=== PATIENT | male | born 1980 | race Caucasian/White ===

== ENCOUNTER 2019-07-03 08:14 | Emergency (ER) | payer BC, OTHER ==
[~2019-07-03] VITALS: Ht 167.6 cm; Wt 54.5 kg
[~2019-07-03 08:14] MED LIST: ADVA1AER2; PRED20TA; PRIL40CA; VENTAER; XOPE1.252
--- NOTE | 2019-07-03 08:48 | REP ---
Portable chest x-ray: Single view. History: Chest pain. Comparison study: May 11, 2009. Findings: The lungs are hyperinflated but free of infiltrate. Heart size is normal. Pulmonary vasculature is not increased. The pleural angles are sharp. No significant bony abnormality is seen. Impression: Hyperinflation. No acute disease. Electronically Signed by Bryan Smith MD 07/03/2019 08:39 A
[2019-07-03] MEDS ORDERED: ONDANSETRON 4MG/2ML VIAL (J2405) IV ONE (09:15)
[2019-07-03] MEDS ORDERED: NS 1,000 ML IV ONE (09:15)
[2019-07-03 09:21] LABS: BASO % 0.4 % (0.0-1.0); EOS % 0.1 % (0.0-3.0); HEMATOCRIT 41.2 % (42.0-52.0); HEMOGLOBIN 14.4 g/dl (13.5-17.5); LYMPH # 0.3 10^3/uL (1.5-5.0); LYMPH % 2.7 % (24.0-44.0); MEAN CORPUSCULAR VOLUME 85.8 fl (80.0-96.0); MONO # 0.5 10^3/uL (0.0-0.8); MONO % 5.7 % (0.0-5.0); NEUTROPHILS # 8.4 10^3/uL (1.5-8.5); NEUTROPHILS % 90.6 % (36.0-66.0); PLATELET COUNT, AUTOMATED 228 10^3/uL (150-450); WHITE BLOOD COUNT 9.2 10^3/uL (4.0-10.0)
[2019-07-03 09:36] LABS: ALBUMIN 4.4 GM/DL (3.2-5.2); ALT/SGPT 26 U/L (12-78); BILIRUBIN,DIRECT 0.3 MG/DL (0.0-0.2); BILIRUBIN,TOTAL 0.9 MG/DL (0.2-1.0); BLOOD UREA NITROGEN 16 MG/DL (7-18); CALCIUM LEVEL 9.5 MG/DL (8.5-10.1); CARBON DIOXIDE LEVEL 20 MEQ/L (21-32); CHLORIDE LEVEL 107 MEQ/L (98-107); CK-MB VALUE MASS < 1.0 NG/ML (<3.6); CPK CREATINE PHOSPHOKINASE 115 U/L (39-308); CREATININE FOR GFR 1.19 MG/DL (0.70-1.30); GLOMERULAR FILTRATION RATE > 60.0 (>60); GLUCOSE, FASTING 127 MG/DL (70-100); LIPASE 129 U/L (73-393); MB/CK RELATIVE INDEX 0.87 (< OR =4); POTASSIUM SERUM 3.5 MEQ/L (3.5-5.1); SODIUM LEVEL 139 MEQ/L (136-145); TOTAL PROTEIN 6.8 GM/DL (6.4-8.2); TROPONIN I < 0.02 NG/ML (< 0.10)
[2019-07-03 09:50] LABS: INFLUENZA A AMPLIFICATION POSITIVE (NEGATIVE); INFLUENZA B AMPLIFICATION NEGATIVE (NEGATIVE)
[2019-07-03] MEDS ORDERED: ONDA4TAB6 PO (10:16)
[2019-07-03] MEDS ORDERED: OSEL75CA PO (10:16)
[2019-07-03] MEDS ORDERED: METOCLOPRAMIDE INJ 10MG/2ML VIAL (J2765) IV ONE (10:30)
[2019-07-03 10:44] VITALS: BP 137/82
--- NOTE | 2019-07-04 18:28 | ECGEPIP ---
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
== END 2019-07-03 11:18 | disposition home or self-care (01) ==
LOC: M ED 08:14
DX: J09.X9 Influenza due to identified novel influenza A virus with other manifestations (principal); J45.909 Unspecified asthma, uncomplicated; F12.10 Cannabis abuse, uncomplicated
CPT/HCPCS: 36415; 71045; 80048; 80076; 82550; 82553; 83690; 85025; 87502; 93005; 96361; 96374; 96375; 99284; J2405; J2765